=== PATIENT | female | born 1990 | race African-American/Black ===

== ENCOUNTER 2022-12-28 11:40 | Emergency (ER) | payer MEDICAID ==
[~2022-12-28] VITALS: Ht 175.3 cm; Wt 125.0 kg
[2022-12-28 12:30] VITALS: BP 123/78; PULSE 94; RESP 16; TEMP 99; O2SAT 100
[2022-12-28 14:57] LABS: BASOPHILS % 0.1 % (0.0-2.0); EOSINOPHILS % 3.9 % (0.0-5.0); HEMATOCRIT. 37.6 % (36.0-48.0); HEMOGLOBIN. 13.3 g/dL (12.0-16.0); LYMPHOCYTES % 21.8 % (20.0-50.0); MEAN CORPUSCULAR HEMOGLOBIN 29.3 pg (28.0-32.0); MEAN CORPUSCULAR VOLUME 82.9 fL (81.0-99.0); MEAN PLATELET VOLUME 8.1 fl (7.4-10.4); MONOCYTES % 8.9 % (2.0-8.0); NEUTROPHILS % 65.3 % (40.0-76.0); PLATELET 260 x1000/uL (130-400); RED BLOOD CELL COUNT 4.53 mill/uL (4.2-5.4)
[2022-12-28 15:15] LABS: CHLORIDE 108 mEq/L (98-107)
== END 2022-12-28 16:17 | disposition home or self-care (01) ==
LOC: ER 11:40
DX: R60.9 Edema, unspecified (principal)
CPT/HCPCS: 36415; 71045; 80048; 81025; 83880; 85025; 93970; 99285